=== PATIENT | male | born 1980 | race Caucasian/White ===

== ENCOUNTER 2017-08-22 07:20 | Emergency (ER) | payer SELFPAY ==
[~2017-08-22] VITALS: Ht 182.9 cm; Wt 75.5 kg
[~2017-08-22 07:20] MED LIST: CHLO1TAB15 PO
[2017-08-22 07:27] VITALS: TEMP 36.7; Ht 182.9 cm; Wt 75.5 kg
[2017-08-22] MEDS ORDERED: PROPARACAINE HCL 0.5% OP SOLN 15 ML BTL OP STA (07:35)
[2017-08-22] MEDS ORDERED: MOXIFLOXACIN HCL 0.5% OP SOLN 3 ML BTL OPL STA (08:50)
[2017-08-22] MEDS ORDERED: OXYC-57 PO (09:01)
[2017-08-22] MEDS ORDERED: VGMOPS OP (09:01)
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
[2017-08-22 09:13] VITALS: BP 136/80; PULSE 70; O2SAT 98
== END 2017-08-22 09:16 | disposition home or self-care (01) ==
LOC: C.EDB 07:20 → C.EDA 09:16
DX: H16.002 Unspecified corneal ulcer, left eye (principal); F17.210 Nicotine dependence, cigarettes, uncomplicated